=== PATIENT | female | born 1975 | race American Indian/Alaskan Native ===

== ENCOUNTER 2019-01-30 13:14 | Emergency (ER) | payer BC ==
--- NOTE | 2019-01-30 13:43 | Event Note ---
ED Screening Note Date of service: 01/30/19 Time: 13:41 ED Screening Note: 43 y o f presents with right arm pain and swelling x 3 days hx of tattoo 3 weeks ago This initial assessment/diagnostic orders/clinical plan/treatment(s) is/are subject to change based on patients health status, clinical progression and re- assessment by fellow clinical providers in the ED. Further treatment and workup at subsequent clinical providers discretion. Patient/guardian urged not to elope from the ED as their condition may be serious if not clinically assessed and managed. Initial orders include: antibiotics- clinda IV- bactrim home I&D?
[2019-01-30] MEDS ORDERED: BOOSTRIX IM ONE (16:55)
[2019-01-30] MEDS ORDERED: CLEOCIN 900 MG/50 mL 900 MG/50 ML BAG IV ONE (16:55)
--- NOTE | 2019-01-30 17:10 | Emergency Department Report ---
- General Chief complaint: Skin/Abscess/Foreign Body Stated complaint: RT ARM/LOWER PAIN Time Seen by Provider: 01/30/19 13:39 Source: patient Mode of arrival: Ambulatory Limitations: No Limitations - History of Present Illness Initial comments: Patient is a 43-year-old female presents to the emergency room with complaints of an "infection to her right forearm" that began a few days ago. She states that 3 weeks ago she received a new tattoo to the right forearm. pt states started as a small bump on her right forearm but has progressively gotten worse. she states she has noticed redness surrounding the forearm. She states she is unsure of her last tetanus immunization. She states she has not seen much drainage. She denies any past medical history or allergies to medications. - Related Data Previous Rx's Medication Instructions Recorded Last Taken Type Clindamycin [Clindamycin CAP] 450 mg PO TID 7 Days #63 capsule 01/30/19 Unknown Rx Allergies Allergy/AdvReac Type Severity Reaction Status Date / Time No Known Allergies Allergy Verified 01/30/19 13:18 Abscess Boil HPI - HPI Chief Complaint: Skin/Abscess/Foreign Body Stated Complaint: RT ARM/LOWER PAIN Time Seen by Provider: 01/30/19 13:39 Home Medications: Previous Rx's Medication Instructions Recorded Last Taken Type Clindamycin [Clindamycin CAP] 450 mg PO TID 7 Days #63 capsule 01/30/19 Unknown Rx Allergies/Adverse Reactions: Allergies Allergy/AdvReac Type Severity Reaction Status Date / Time No Known Allergies Allergy Verified 01/30/19 13:18 ED Review of Systems ROS: Stated complaint: RT ARM/LOWER PAIN Other details as noted in HPI Comment: All other systems reviewed and negative ED Past Medical Hx - Past Medical History Previous Medical History?: No - Surgical History Past Surgical History?: No - Social History Smoking Status: Never Smoker Substance Use Type: None - Medications Home Medications: Home Medications Medication Instructions Recorded Confirmed Last Taken Type Clindamycin [Clindamycin CAP] 450 mg PO TID 7 Days #63 capsule 01/30/19 Unknown Rx ED Physical Exam - General Limitations: No Limitations General appearance: alert, in no apparent distress - Head Head exam: Present: atraumatic, normocephalic - Eye Eye exam: Present: normal appearance - ENT ENT exam: Present: mucous membranes moist - Neurological Exam Neurological exam: Present: alert, oriented X3 - Psychiatric Psychiatric exam: Present: normal affect, normal mood - Skin Skin exam: Present: warm, dry, other (area of induration to the right forearm with a central scab present, surrounding erythema and warmth present, no obviuos fluctuance present, no drainage) ED Course Vital Signs 01/30/19 13:39 Temperature 98.8 F Pulse Rate 85 Respiratory 18 Rate Blood Pressure 138/85 O2 Sat by Pulse 97 Oximetry Critical care attestation.: If time is entered above; I have spent that time in minutes in the direct care of this critically ill patient, excluding procedure time. ED Disposition Clinical Impression: Cellulitis Qualifiers: Site of cellulitis: extremity Site of cellulitis of extremity: upper extremity Laterality: right Qualified Code(s): L03.113 - Cellulitis of right upper limb Disposition: TO HOME OR SELFCARE Is pt being admited?: No Does the pt Need Aspirin: No Condition: Stable Instructions: Cellulitis (ED) Additional Instructions: please take medication as prescribed to completion. keep area clean and dry. may wash with soap and water and immediately dry. no hot tub, pool, bath tub. follow up with a primary care doctor in the next 2-3 days. follow up with a general surgeon if not improving. return to the emergency room for any new or worsening symptoms or worsening signs of infection including increasing pain, increasing redness, increasing swelling, etc. Prescriptions: Clindamycin [Clindamycin CAP] 450 mg PO TID 7 Days #63 capsule Referrals: [facility] [Provider Group] - 2-3 Days ISRAEL ENRIQUEZ MD [Staff Physician] - 2-3 Days Time of Disposition: 17:07 Print Language: COMORAN
[2019-01-30 17:49] VITALS: BP 129/78
== END 2019-01-30 18:18 | disposition home or self-care (01) ==
LOC: ED 13:14
DX: L03.113 Cellulitis of right upper limb (principal); Z79.899 Other long term (current) drug therapy
CPT/HCPCS: 90471; 90715; 96365